=== PATIENT | male | born 1950 | race Asian ===

== ENCOUNTER 2018-10-15 11:28 | Emergency (ER) | payer OTHER ==
[2018-10-15 11:45] VITALS: TEMP 98; BMI 25.0
--- NOTE | 2018-10-15 12:18 | PDOC ---
History of Present Illness - General Chief Complaint: Chest Pain Stated Complaint: CHEST PAIN History Source: Patient, Family, Spouse Exam Limitations: Language Barrier - History of Present Illness Initial Comments: 10/15/18 12:52 Pt. is a 68 y.o. M with PMHx. of Leukemia (diagnosed 09/04), CAD x 2 stents( on ASA and Brillinta), HTN, BPH, and GERD presents to the ED with chest tightness. Pt. states that he was recently diagnosed with Leukemia and was started on Tasigna. Pt. had been having worsenisng chest tightness on Tasigna so the dose was reduced, however last Wednesday Pt. went in for a stress test and they noticed areas of ischemia so they placed 2(3?) stents including the LAD at [facility] by Drs. Joe Jewell(Room Service Server) and Arnav Arnett ( Public Policy Analyst). Pt.'s oncologist is also from [facility] (Dr. Benjamin Meehan) Pt. states that chest tightness began while on the Tasigna but had been minimally present before. Pt. took a nitroglycerin tab that had no effect. Pt. is complaining of associated SOB with the chest tightness that is made worse with exertion and dizziness(feels like he is spinning). Pt. endorses a "low-level fuzziness" raj to a headache that is chronic ever since he fell and hit his head many years ago. Pt. denies ever getting head imaging. Pt. endorses intermittent nausea but no vomiting. Pt. states that he is having ~1 loose BM/ day while on the Tasigna but denies any changes other changes in bowel habits or urinary habits. Pt. denies fever, chills numbness/tingling in extremities, productive cough or recent changes in vision or hearing. 10/15/18 13:20 CBC, CMP, BNP, Trop, PT, CXR and EKG ordered. Timing/Duration: constant Severity: mild Modifying Factors: improves with: movement (worsens), rest (improves ) Associated Symptoms: reports: chest pain, headaches (chronic "low level fuzziness"), nausea/vomiting, shortness of breath. denies: cough, diaphoresis, fever/chills, loss of appetite, malaise, rash, seizure, weakness Aspirin Received prior to arrival: Yes: 81 mg x 1 Beta Jimmie Contraindications(Core Measure): Yes: Not Prescribed Past History - Past Medical History Allergies/Adverse Reactions: Allergies Allergy/AdvReac Type Severity Reaction Status Date / Time No Known Allergies Allergy Verified 10/15/18 11:44 Cancer: Yes (leukemia) Cardiac Disorders: Yes COPD: No Dementia: No Diabetes: No Dialysis: No GI Disorders: Yes (GERD) Disorders: Yes (BPH) HTN: Yes Hypercholesterolemia: Yes - Surgical History Cardiac Surgery: Yes (stent x 3 10/12/18) Orthopedic Surgery: Yes (Right Hip 2013) - Suicide/Smoking/Psychosocial Hx Smoking History: Never smoked Review of Systems - Review of Systems Able to Perform ROS?: Yes Is the patient limited Greek proficient: Yes Constitutional: No: Chills, Fever, Loss of Appetite HEENTM: No: Recent change in vision, Difficulty Swallowing Respiratory: Yes: Shortness of Breath, SOB with Exertion. No: SOB at Rest, Wheezing, Productive cough Cardiac (ROS): Yes: Chest Pain, Chest Tightness ABD/GI: Yes: Diarrhea (Pt. reports loose stool), Nausea, Indigestion. No: Difficulty Swallowing, Rectal Bleeding, Vomiting : No: Symptoms Reported, Burning, Dysuria, Discharge, Frequency, Flank Pain, Hematuria, Pain Musculoskeletal: No: Back Pain Integumentary: No: Symptoms Reported Neurological: Yes: Headache, Dizziness. No: Numbness, Seizure, Tingling, Tremors, Unsteady Gait, Ataxia *Physical Exam - Vital Signs Last Vital Signs Temp Pulse Resp BP Pulse Ox 98 F 85 18 124/63 99 10/15/18 11:41 10/15/18 11:41 10/15/18 11:41 10/15/18 11:41 10/15/18 11:41 - Physical Exam General Appearance: Yes: Nourished, Appropriately Dressed, Mild Distress HEENT: positive: TETO, Normal ENT Inspection, Normal Voice, Symmetrical, Hearing Grossly Normal. negative: Pharyngeal Erythema, Tonsillar Exudate, Tonsillar Erythema Neck: positive: Trachea midline, Supple. negative: Tender, Carotid bruit Respiratory/Chest: positive: Lungs Clear, Normal Breath Sounds. negative: Chest Tender, Respiratory Distress, Labored Respiration, Rapid RR, Decreased Breath Sounds, Crackles, Rales, Wheezing Cardiovascular: positive: Regular Rhythm, Regular Rate, S1, S2. negative: Edema , JVD, Murmur Vascular Pulses: Dorsalis-Pedis (R): 2+ (radial), Doralis-Pedis (L): 2+ (radial) Gastrointestinal/Abdominal: positive: Normal Bowel Sounds, Soft. negative: Guarding, Rebound, Tenderness Musculoskeletal: positive: Normal Inspection. negative: CVA Tenderness, Vertebral Tenderness Extremity: positive: Normal Inspection, Normal Range of Motion. negative: Coldness, Pedal Edema, Swelling, Calf Tenderness Neurologic: positive: Fully Oriented, Alert, Normal Mood/Affect, Normal Response Moderate Sedation - Procedure Monitoring Vital Signs: Procedure Monitoring Vital Signs Temperature 98 F 10/15/18 11:41 Pulse Rate 85 10/15/18 11:41 Respiratory Rate 18 10/15/18 11:41 Blood Pressure 124/63 10/15/18 11:41 O2 Sat by Pulse Oximetry (%) 99 10/15/18 11:41 ED Treatment Course - LABORATORY CBC & Chemistry Diagram: 10/15/18 13:50 10/15/18 13:50 *DC/Admit/Observation/Transfer Diagnosis at time of Disposition: Chest pain - Discharge Dispostion Disposition: HOME Condition at time of disposition: Improved Decision to Admit order: No - Referrals - Patient Instructions Printed Discharge Instructions: DI for Atypical Chest Pain, DI for Chest Pain Additional Instructions: You came in for chest pain. We ran tests that showed nothing immediate was happening. We discussed your case with your trap operator Dr. Jewell and he agrees that you are safe to be discharged home. We discussed your case with your oncologist Dr. Alexander and she agrees that you are safe to be discharged home. Dr. Alexanedr advised that you discontinue taking your Tasigna until you meet her for your next appointment next month. Please follow up with your Primary Care Doctor within the next week. Please follow up with your Oncologist and Room Service Server within the next week. Please return to the Ed if you are having worsening chest pain, shortness of breath or any concerning symptoms. - Post Discharge Activity
[2018-10-15 14:11] LABS: BASO % 0.5 % (0-2.0); HEMATOCRIT 31.9 % (35.4-49); HEMOGLOBIN 11.5 GM/dL (11.7-16.9); MCH 32.5 pg (25.7-33.7); MCHC 35.9 g/dl (32.0-35.9); MEAN CELL VOLUME 90.7 fl (80-96); MEAN PLT VOLUME 8.4 fl (7.5-11.1); MONO % 5.4 % (3.8-10.2); NEUT % 67.1 % (42.8-82.8); PLATELET COUNT 148 K/MM3 (134-434); RBC 3.52 M/mm3 (4.00-5.60); RDW 14.7 % (11.9-15.9); WHITE BLOOD COUNT 5.1 K/mm3 (4.0-10.0)
[2018-10-15 14:17] LABS: INR 1.03 (0.83-1.09); PROTHROMBIN TIME (PATIENT) 12.2 SEC (9.7-13.0)
[2018-10-15 14:47] LABS: ALBUMIN 3.5 g/dl (3.4-5.0); ALK PHOS 77 U/L (45-117); ANION GAP 6 MMOL/L (8-16); BILIRUBIN,TOTAL 1.7 mg/dL (0.2-1); BLOOD UREA NITROGEN 16 mg/dL (7-18); CALCIUM 8.1 mg/dL (8.5-10.1); CHLORIDE 107 mmol/L (98-107); CO2 26 mmol/L (21-32); CREATININE 0.7 mg/dL (0.55-1.3); GLUCOSE,RANDOM 115 mg/dL (74-106); POTASSIUM 3.8 mmol/L (3.5-5.1); SGOT/AST 15 U/L (15-37); SGPT/ALT 24 U/L (13-61); SODIUM 140 mmol/L (136-145); TOT PROT 6.5 g/dl (6.4-8.2)
--- NOTE | 2018-10-15 15:07 | PDOC ---
Attending Attestation - HPI HPI: 10/15/18 15:09 The patient is a 68 year old male with a significant past medical history of hypertension, BPH, reflux disease, and leukemia (recently diagnosed 08/2018) who presents to the emergency department with chest pain for 4 days. The patient describes his chest pain as a bilateral tightness and pressure-like feeling that is a 6/10 in severity and worsened with deep breath. He states that he began to experience his chest pain this morning at about 7 am with associated shortness of breath. The patient reports taking his nitroglycerin this morning at about 10:30 am with no apparent relief of his symptoms. As per patient's daughter at bedside, the patient had about 3 stents placed several days ago and subsequently began experiencing his chest pain. It is noted that the patient also began taking tasigna about 3 weeks ago and, has changed dosage from 2 pills 2x a day to 1 pill 2x a day. He states that he took 1 pill today. The patient also reports some chronic headache and associated dizziness secondary to it. The patient denies any other symptoms. He denies any fever, chills, nausea, vomiting, diarrhea, constipation or urinary symptoms. The patient denies any other complaints. Documentation prepared by Precious Fernández, acting as medical record assistant for Mary Luna MD. <Precious Fernández - Last Filed: 10/15/18 15:09> - Resident Resident Name: Sen Robert - [facility] HPI: I Dr. Mary Luna , attest that the documentation noted by the scribe was prepared under my direct supervision 10/15/18 23:57 - Physicial Exam PE: 10/15/18 15:08 10/15/18 15:07 HEENT: NCAT,MARCIAL, Neck: supple Lungs: + bs carlos cta Heart: S1S2 regular Abd: + bs abd soft no guarding or tenderness Ext : no edema 10/15/18 15:08, carlos eccymosis notd to both groin areas, with dsd in place Neuro: alert and oriented x3, castro's no focal deficts 10/15/18 23:58 - Medical Decision Making 10/15/18 14:59 68 y/o male here with his and daughter for evaluation of chest pain bilateral chest wall along with some sob. Pt thinks the pain may be related to his TASIGNA that he is taking for his CML. Pt's seen and examined at bedside with resident, labs noted and unremarkable. Case discussed with Dr. jones, pt's mortgage loan coordinator , cath done two days ago no complications, feels pt stable for dc home. Pt already ad f/u appointment scheduled for next week. Pt agrees with this dc plan, pt to return to ED for chest pain, associated with nasuea and vomiting, dizziness or as needed. Pt agrees with this dc plan <Mary Luna - Last Filed: 10/15/18 23:59>
[2018-10-15 16:27] VITALS: BP 124/74; PULSE 62
--- NOTE | 2018-10-16 11:27 | EKG ---
Test Reason : Blood Pressure : / mmHG Vent. Rate : 081 BPM Atrial Rate : 081 BPM P-R Int : 158 ms QRS Dur : 088 ms QT Int : 390 ms P-R-T Axes : 067 -05 045 degrees QTc Int : 453 ms NORMAL SINUS RHYTHM POSSIBLE LEFT ATRIAL ENLARGEMENT BORDERLINE ECG NO PREVIOUS ECGS AVAILABLE Confirmed by MJ BARBOUR, DEIDRA ([id number]) on 10/16/2018 11:27:28 AM Referred By: Confirmed By:DEIDRA BARKER MD
== END 2018-10-15 15:25 | disposition home or self-care (01) ==
LOC: JER 11:28
DX: R07.9 Chest pain, unspecified (principal); C95.90 Leukemia, unspecified not having achieved remission; I25.10 Atherosclerotic heart disease of native coronary artery without angina pectoris; I10 Essential (primary) hypertension; Z95.5 Presence of coronary angioplasty implant and graft; N40.0 Benign prostatic hyperplasia without lower urinary tract symptoms; K21.9 Gastro-esophageal reflux disease without esophagitis; Z79.01 Long term (current) use of anticoagulants; Z79.82 Long term (current) use of aspirin
CPT/HCPCS: 36415; 71045-TC-FY; 80053; 83880; 84484; 85025; 85610; 93005; 93010; 99283-25